=== PATIENT | female | born 1950 | race Caucasian/White ===

== ENCOUNTER 2017-09-27 09:50 | Inpatient (IN) | payer OTHER ==
[~2017-09-27] VITALS: Ht 167.6 cm; Wt 75.3 kg
[2017-09-27 09:53] VITALS: BP 203/121
[2017-09-27 10:08] LABS: ABSOLUTE BASOPHILS 0.1 thou/uL (0.0-0.2); ABSOLUTE EOSINOPHILS 0.1 thou/uL (0.0-0.7); ABSOLUTE MONOCYTES 0.7 thou/uL (0.0-1.2); ABSOLUTE NEUTROPHILS 9.9 thou/uL (1.6-8.1); BASOPHILS 0.9 %; EOSINOPHILS 0.6 %; HEMATOCRIT 43.6 % (37.0-47.0); HEMOGLOBIN 14.7 gm/dL (12.0-15.0); LYMPHOCYTES 15.8 %; MCH 31.5 pg (26.0-34.0); MCHC 33.8 g/dL (28.0-37.0); MCV 93.3 fL (80.0-100.0); MONOCYTES 5.4 %; NUCLEATED RBCS 0 /100WBC; PLATELET COUNT* 323 thou/uL (150-400); POLYS 77.3 %; RBC 4.68 mil/uL (4.20-5.00); WBC 12.8 thou/uL (4.0-11.0)
[2017-09-27 10:25] LABS: ANION GAP 11 mmol/L (7-16); BUN 13 mg/dL (7-18); CALCIUM 9.3 mg/dL (8.5-10.1); CHLORIDE 104 mmol/L (98-107); CO2 25 mmol/L (21-32); CREATININE 0.9 mg/dL (0.6-1.3); GLUCOSE 127 mg/dL (70-99); POTASSIUM 3.5 mmol/L (3.5-5.1); SODIUM 140 mmol/L (136-145)
[2017-09-27 10:31] LABS: ALKALINE PHOSPHATASE 89 U/L (46-116); SGOT 14 U/L (15-37); SGPT 14 U/L (30-65); TOTAL BILIRUBIN 0.5 mg/dL (<0.1-1.0); TOTAL PROTEIN 7.7 g/dL (6.4-8.2); TROPONIN-I LEVEL <0.06 ng/mL (<0.06)
[2017-09-27 13:15] VITALS: BP 88/69
[2017-09-27 13:59] VITALS: BP 164/81
--- NOTE | 2017-09-27 14:02 | NUR ---
Pickle Maker: Met with patient and while in the ED. Explained stroke program and what to expect during hospital course. Patient expresses that she is "scared". Repeating questions at time. Provided emotional support. Patient feels weakness in RLE, some numbness in RUE and lack of coordination, speech is understandable. Discussed controllable risk factors of smoking and managing blood pressure.
[2017-09-27 14:05] VITALS: BP 182/77
[2017-09-27 16:05] VITALS: BP 166/73
--- NOTE | 2017-09-27 16:29 | NUR ---
RECEIVED CONSULT FOR POSSIBLE REHAB ADMISSION. CONSULT HAS BEEN ACKNOWLEDGED BY TODDLER GUIDE AND DR. SOTELO. PT ADMITTED FOR POSSIBLE STROKE. STROKE WORKUP IN PROGRESS. NEUROLOGY PENDING, MRI PENDING, PT/OT/ST EVALUATIONS PENDING. WILL FOLLOW ALONG TO WORK UP AND EVALUATIONS TO DETERMINE IF PT IS IN NEED OF ACUTE REHAB. THANK YOU FOR THIS CONSULT.
--- NOTE | 2017-09-27 16:37 | EKG ---
[place] [address] ELECTROCARDIOGRAM REPORT Name: CORINNE PRAKASH Room: [address] IN .R.#: [id number] Admission: 09/27/17 Attend Phys: Phong Liao MD Discharge: Date of : 50 Report #: [id number] THIS REPORT FOR: //name// [facility] ED Test Date: 2017-09-27 Test Time: 10:03:31 Pat Name: CORINNE PRAKASH Department: Room: Gender: F Final Assembler: ID : [id number] Requested By: Fadi Cancino Order Number: [id number] MD: Tam Mckeon Measurements Intervals [place] Rate: 100 P: 51 NM: 155 QRS: -13 QRSD: 92 T: 38 QT: 384 QTc: 496 Interpretive Statements Sinus tachycardia Borderline prolonged QT interval No previous ECG available for comparison Electronically Signed On 09-27-2017 16:37:27 CDT by Tam Mckeon [email or web address] <ELECTRONICALLY SIGNED> By: Tam Mckeon MD, [facility] 09/27/17 1637 1003 1003 Tam Mckeon MD, FACC /EPI
--- NOTE | 2017-09-27 18:28 | NUR ---
PT ADMITTED TO ROOM 209 VIA CART AT 1405 FROM ED. PT ABLE TO AMBULATE WITHOUT DIFFICULTY. NIH 0. SWALLOW SCREEN -. ASSESSMENT CHARTED. AT THE BEDSIDE. VSS, BP ELEVATED. MRI/MRA HEAD, CAROTIDS DONE AND RESULTS HAVE BEEN CALLED TO NEUROLOGY. NO OTHER COMPLAINTS AT THIS TIME. WILL CONTINUE TO MONITOR.
[2017-09-27 20:15] VITALS: BP 189/101
[2017-09-28] VITALS: BP 163/63
--- NOTE | 2017-09-28 01:30 | NUR ---
TOOK PT INTO CARE AT 1930. ASSESSMENT COMPLETED CHARTED. DOING NIH Q12 HOURS WITH RANDOMIZED ONES INBETWEEN. PT WAS TIRED AT BEGINNING OF SHIFT AND HAS BEEN SLEEPING THIS SHIFT. BP STAYING HIGH AT AROUND 160S, NO S/SX OF DISTRESS. FLUIDS RUNNING AT 80ML/HR IN LEFT HAND. WILL CONTINUE TO MONITOR.
[2017-09-28 03:08] LABS: GLYCOHEMOGLOBIN (HGB A1C) 5.1 % (4.8-5.6)
[2017-09-28 04:00] VITALS: BP 158/86
[2017-09-28 05:07] LABS: ABSOLUTE BASOPHILS 0.1 thou/uL (0.0-0.2); ABSOLUTE EOSINOPHILS 0.3 thou/uL (0.0-0.7); ABSOLUTE MONOCYTES 0.5 thou/uL (0.0-1.2); ABSOLUTE NEUTROPHILS 4.2 thou/uL (1.6-8.1); BASOPHILS 1.2 %; EOSINOPHILS 4.1 %; HEMATOCRIT 40.2 % (37.0-47.0); HEMOGLOBIN 13.5 gm/dL (12.0-15.0); LYMPHOCYTES 28.1 %; MCH 31.7 pg (26.0-34.0); MCHC 33.6 g/dL (28.0-37.0); MCV 94.2 fL (80.0-100.0); MONOCYTES 7.7 %; MPV 7.4 fl. (7.2-11.1); NUCLEATED RBCS 0 /100WBC; PLATELET COUNT* 277 thou/uL (150-400); POLYS 58.9 %; RBC 4.27 mil/uL (4.20-5.00); RDW-CV 13.2 % (10.5-14.5); WBC 7.1 thou/uL (4.0-11.0)
[2017-09-28 05:13] LABS: CALCIUM 8.7 mg/dL (8.5-10.1); CHOLESTEROL 191 mg/dL (<200); CREATININE 0.8 mg/dL (0.6-1.3); HDL CHOLESTEROL 58 mg/dL (>40); LDL CHOLESTEROL 117 mg/dL (<100); TC:HDL 3.3 Ratio (Not establshd); TRIGLYCERIDE 80 mg/dL (<150); VLDL 16 mg/dL (<40)
[2017-09-28 05:24] LABS: SERUM ASSESSMENT Clear
[2017-09-28 08:00] VITALS: BP 184/79
--- NOTE | 2017-09-28 11:08 | 2DMMODE ---
[place] [address] 2 D/M-MODE ECHOCARDIOGRAM Name: CORINNE PRAKASH Room: [address] IN [facility]#: [id number] Admission: 09/27/17 Attend Phys: Phong Liao, Discharge: Date of : 50 Date of Service: 09/28/17 1108 Report #: [id number] THIS REPORT FOR: //name// APPROVED REPORT Study performed: 09/28/2017 09:21:31 EXAM: Comprehensive 2D, Doppler, and color-flow Echocardiogram Patient Location: In-Patient Room #: [facility] Status: routine BSA: 1.87 HR: 89 bpm BP: 158/86 mmHg Rhythm: NSR Other Information Study Quality: Good Indications CVA/TIA Echo Enhancing Agent Indication: Rule out Shunt Agent(s) / Amount(s) Used: Agitated Saline 10 cc 2D Dimensions LVEF(%): 63.47 (>50%) IVSd: 12.48 (7-11mm) LVOT Diam: 20.81 (18-24mm) LVDd: 40.76 mm PWd: 12.33 (7-11mm) Ascending Ao: 28.03 (22-36mm) LVDs: 26.89 (25-40mm) Aortic Root: 23.84 mm Lozano's LVEF: 63.47 % Volumes Left Atrial Volume (Systole) LA ESV Index: 23.30 mL/m2 Aortic Valve AoV Peak Abbe.: 1.44 m/s AO Peak Gr.: 8.32 mmHg LVOT Max P.13 mmHg AO Mean Gr.: 4.35 mmHg LVOT Mean P.08 mmHg LVOT Max V: 1.33 m/s AO V2 VTI: 28.06 cm LVOT Mean V: 0.79 m/[place] [address] 2 D/M-MODE ECHOCARDIOGRAM Name: CORINNE PRAKASH Room: [address] IN .R.#: [id number] Admission: 09/27/17 Attend Phys: Phong Liao, Discharge: Date of : 50 Date of Service: 09/28/17 1108 Report #: [id number] NICOLASA (VTI): 3.52 cm2 LVOT V1 VTI: 29.01 cm Mitral Valve E/A Ratio: 0.69 MV Decel. Time: 223.77 ms MV E Max Abbe.: 0.71 m/s MV PHT: 64.89 ms MVA (PHT): 3.39 cm2 TDI E/Lateral E': 7.89 E/Medial E': 7.10 Medial E' Abbe.: 0.10 m/s Lateral E' Abbe.: 0.09 m/s Pulmonary Valve PV Peak Abbe.: 1.09 m/s PV Peak Gr.: 4.73 mmHg Tricuspid Valve TR Peak Gr.: 17.88 mmHg RVSP: 22.00 mmHg Left Ventricle The left ventricle is normal size. There is normal LV segmental wall motion. There is normal left ventricular wall thickness. Left ventricular systolic function is normal. The left ventricular ejection fraction is within the normal range. LVEF is 60-65%. Grade I - abnormal relaxation pattern. Right Ventricle The right ventricle is normal size. The right ventricular systolic function is normal. Atria The left atrium size is normal. Interatrial septum is intact without evidence of ASD or PFO. The right atrium size is normal. Aortic Valve The aortic valve is normal in structure. No aortic regurgitation is present. There is no aortic valvular stenosis. Mitral Valve The mitral valve is normal in structure. There is no mitral valve regurgitation noted. No evidence of mitral valve stenosis. Tricuspid Valve The tricuspid valve is normal in structure. Trace tricuspid regurgitation. The RVSP is ___22____ [place] [address] 2 D/M-MODE ECHOCARDIOGRAM Name: CORINNE PRAKASH Room: [address] IN .R.#: [id number] Admission: 09/27/17 Attend Phys: Phong Liao, Discharge: Date of : 50 Date of Service: 09/28/17 1108 Report #: [id number] Pulmonic Valve The pulmonary valve is normal in structure. There is no pulmonic valvular regurgitation. Great Vessels The aortic root is normal in size. IVC is normal in size and collapses with >50% inspiration Pericardium There is no pericardial effusion. <Conclusion> The left ventricle is normal size. There is normal left ventricular wall thickness. Left ventricular systolic function is normal. The left ventricular ejection fraction is within the normal range. LVEF is 60-65%. Grade I - abnormal relaxation pattern. The right ventricle is normal size. The left atrium size is normal. The aortic valve is normal in structure. The mitral valve is normal in structure. The tricuspid valve is normal in structure. Trace tricuspid regurgitation. The RVSP is ___22____ mmHg. IVC is normal in size and collapses with >50% inspiration There is no pericardial effusion. There is normal LV segmental wall motion. Interatrial septum is intact without evidence of ASD or PFO. <ELECTRONICALLY SIGNED> By: Tam Mckeon MD, FACC 09/28/17 1108 1108 07 Tam Mckeon MD, FACC /INF
--- NOTE | 2017-09-28 11:11 | NUR ---
Pt is A&O. Resides at home with her . Normally active and independent, has a trip planned to go to [place] in a few weeks. No DME. No hx of HH or SNF. Admitted for stroke. Rehab consult placed. Pt's goal is to return home. No needs anticipated. Following.
[2017-09-28 11:45] VITALS: BP 186/89
--- NOTE | 2017-09-28 15:15 | NUR ---
Electrical Products Engineer: Met with patient and today for follow up. Patient able to explain cause of stroke, cholesterol management strategies, and BP management. Discussed measuring Blood Pressure at home regularly. Patient knows need to obtain follow up at for aneurysm after discharge. Walking in halls, positive attitude, looking forward to discharge. Reviewed stroke signs and symptoms and to call 911.
[2017-09-28 16:00] VITALS: BP 148/79
--- NOTE | 2017-09-28 19:08 | NUR ---
LAM RESTING IN BED. UP AD BLANCA IN ROOM. EXPECTED TO DISCHARGE OT HOME TOMORROW. MEDICATIONS FOR HTN ADJUSTED AND BEING MONOTORED. HOURKY ROUNDING COMPLETD FOR PATIENT SAFETY. VITAL SIGNS STABLE AND BLOOD PRESSURE BETTER CONTROLLED.
[2017-09-28 20:00] VITALS: BP 169/64
[2017-09-29] VITALS: BP 123/62
--- NOTE | 2017-09-29 02:53 | NUR ---
TOOK PT INTO CARE AT 1930. ASSESSMENT COMPLETED CHARTED. NIH WAS 0. NO C/O PAIN OR DISCOMFORT. UP AD BLANCA, IV IN LEFT HAND SL, SR ON THE MONITOR, A & O X 4, ABLE TO MAKE NEEDS KNOWN, VSS, NO WEAKNESS NOTED. POSSIBLE D/C TODAY. WILL CONTINUE TO MONITOR.
[2017-09-29 04:00] VITALS: BP 138/64
[2017-09-29 08:00] VITALS: BP 117/67
[2017-09-29] MEDS ORDERED: NORVASC5 MG PO (10:12)
[2017-09-29] MEDS ORDERED: ATORVASTATIN CA40 MG PO (10:13)
[2017-09-29] MEDS ORDERED: ASPIR 8181 MG PO (10:15)
[2017-09-29 10:18] VITALS: BP 117/67
[2017-09-29 11:30] VITALS: BP 160/80
--- NOTE | 2017-10-02 20:24 | CON ---
[address] [address] CONSULTATION Name: CORINNE PRAKASH Room: [address] IN M.R.#: [id number] Admission: 09/27/17 Attend Phys: Phong Liao MD Discharge: 09/29/17 Date of : 50 Report #: [id number] THIS REPORT FOR: //name// CC: Phong Liao Neena Coronel DATE OF SERVICE: 09/27/2017 HISTORY OF PRESENT ILLNESS: This is a 67-year-old female patient who indicated that about a week ago she started having some speech difficulty as well as the right leg was dragging. Symptoms were moderately severe. This came spontaneously without any trauma. They were not associated with any headache. She did not come to the hospital first, but subsequently came to the hospital because her children insisted on coming to the hospital. REVIEW OF SYSTEMS: She has not been to a physician for a long time. She has not checked her blood pressure for a long time. Therefore, it is not clear what her blood pressure is for long time, but combining the history, it looks like she is an uncontrolled hypertensive for a long period of time. She does not know what her last cholesterol was. She is complaining of right leg symptoms, but is not complaining of much other symptoms. She does not have any new eye, ENT, cardiac, respiratory, GI, , musculoskeletal, constitutional, dermatological, hematological, psychiatric, throat, allergic symptom associated with present symptomatology. PAST MEDICAL HISTORY: Negative for stroke. FAMILY HISTORY: Negative for early age CVA. SOCIAL HISTORY: Unremarkable. PHYSICAL EXAMINATION: The patient's examinations indicate she is alert, responsive, able to follow simple and complex command. Her speech, concentration, fund of knowledge and memory is at her baseline. Cranial nerve examination 2-12 was carried out and looks mostly unremarkable. She is weak in the right lower extremity, but the right upper extremity she moves rather well. Her position sense is intact. Her tone is symmetrical. There is no cerebellar sign. I could not have a very good look at the patient's fundus. She is a moderately built individual who does not have any dysmorphic features of eyes, ears and face. Her vision and hearing looks adequate. The pulses are palpable. She has no edema, cyanosis, or jaundice. Blood pressure is 177/88, respiration is , and pulse is 87. LABORATORY DATA: White count is 12.8. Sodium is normal. Her CT scan was reviewed and it showed finding consistent with a [place] [address] CONSULTATION Name: CORINNE PRAKASH Jay Room: [address] IN [facility]#: [id number] Admission: 09/27/17 Attend Phys: Phong Liao MD Discharge: 09/29/17 Date of : 50 Report #: [id number] IMPRESSION: The patient has a stroke secondary to uncontrolled hypertension. It is most likely a small vessel disease. Her MRI and MRAs ordered, we checked on that. RECOMMENDATION: I discussed with the emergency room and I told them to lower the blood pressure only slightly and it should be lowered over a period of time. She is already on aspirin. We will see if there is any need for statin and she will also is on enoxaparin and she will continue that. I discussed all of it with the patient and the patient wants to follow this plan. Thank you very much for this referral and if you have any question, please feel free to contact me. <ELECTRONICALLY SIGNED> By: Josiah Amin MD 10/02/172023 1445 04Josiah Amin MD /nt
== END 2017-09-29 13:00 | disposition home or self-care (01) | DRG 65 ==
LOC: M.ERS 09:50 → M.2W 10:51 → M.TBA-ER 10:51 → M.2W 14:24
PROVIDERS: Emergency Medicine Emergency Medical Services; ADMIT Internal Medicine
DX: I63.9 Cerebral infarction, unspecified (principal); I16.1 Hypertensive emergency; F41.9 Anxiety disorder, unspecified; I10 Essential (primary) hypertension; E78.5 Hyperlipidemia, unspecified; F17.210 Nicotine dependence, cigarettes, uncomplicated; Z71.6 Tobacco abuse counseling; Z88.2 Allergy status to sulfonamides; Z88.8 Allergy status to other drugs, medicaments and biological substances

== ENCOUNTER → 2017-12-12 | Outpatient (CLI) | payer OTHER ==
[~2017-12-12] MED LIST: ASPIR 8181 MG PO; ATORVASTATIN CA40 MG PO; NORVASC5 MG PO
== END ==
LOC: M.LAB 10:44
PROVIDERS: Psychiatry & Neurology Neuromuscular Medicine
DX: I63.8 Other cerebral infarction (principal); I67.1 Cerebral aneurysm, nonruptured; F41.9 Anxiety disorder, unspecified; I10 Essential (primary) hypertension

== ENCOUNTER 2020-02-21 17:33 | Emergency (ER) | payer OTHER ==
[~2020-02-21] VITALS: Ht 165.1 cm; Wt 81.7 kg
[2020-02-21] MEDS ORDERED: IBUPROFEN 600600 M1 PO ×2 (19:34→19:40)
[2020-02-21] MEDS ORDERED: NORCO 5-325 TA1 EAC2 PO ×2 (19:34→19:37)
[2020-02-21 20:04] VITALS: BP 149/76
== END 2020-02-21 20:05 | disposition home or self-care (01) ==
LOC: M.ERS 17:33
DX: S42.291A Other displaced fracture of upper end of right humerus, initial encounter for closed fracture (principal); I10 Essential (primary) hypertension; E78.5 Hyperlipidemia, unspecified; Z79.899 Other long term (current) drug therapy; Z88.2 Allergy status to sulfonamides; Z88.6 Allergy status to analgesic agent; W01.0XXA Fall on same level from slipping, tripping and stumbling without subsequent striking against object, initial encounter; Y93.89 Activity, other specified; Y92.89 Other specified places as the place of occurrence of the external cause; Y99.8 Other external cause status

== ENCOUNTER → 2020-02-27 | Outpatient (CLI) | payer OTHER ==
[~2020-02-27] MED LIST changes: +ASA81BEC PO; +IBUPROFEN 600600 M1 PO; +NORCO 5-325 TA1 EAC2 PO
== END ==
LOC: M.LAB 16:10
PROVIDERS: ATTEND Orthopaedic Surgery
DX: Z01.812 Encounter for preprocedural laboratory examination (principal); Z20.828 Contact with and (suspected) exposure to other viral communicable diseases

== ENCOUNTER 2020-03-02 06:07 | Observation (INO) | payer OTHER ==
[~2020-03-02] VITALS: Ht 165.1 cm; Wt 81.6 kg
--- NOTE | ~2020-03-02 | H ---
[address] [address] HISTORY AND PHYSICAL Name: CORINNE PRAKASH Room: [address] [place]#: [id number] Admission: 03/02/20 Attend Phys: Elias Hall DO Discharge: Date of : 50 Report #: [id number] THIS REPORT FOR: //name// cc: Micah Martino Russell J. DO ~ CC: Elias Matrino DATE OF SERVICE: 03/02/2020 HISTORY OF PRESENT ILLNESS: The patient is a 69-year-old female who presented to [facility] for operative treatment of her right proximal humerus fracture. She is here today with . She sustained a fall out onto her right arm, went to [facility] Emergency Department. This was on 02/21/2020. She presented to Dr. Beltre's clinic. Dr. Beltre examined her, went over treatment options ranging from nonoperative to operative, operative ranging from ORIF to arthroplasty. She ultimately wished for surgery. Dr. Beltre had discussed the case with me and I agreed with those treatment options with the patient's wish for surgery. I asked that she see me in clinic; however, she was not able to make it to the clinic and she stated she was comfortable meeting me preoperatively prior to surgery and that is what she was here for. Her pain is 10/10 at times, radiates down the arm, but mostly located at the shoulder. Denies numbness, does have some tingling about the shoulder with a little bit of radiation. She denies any fevers, chills, chest pain, shortness of breath, or calf pain. Pain is for the most part constant aching pain with frequent stabs, made better by rest and medication, worse with any type of movement. PAST MEDICAL HISTORY: Anxiety, stroke in 2018, hyperlipidemia, hypertension. PAST SURGICAL HISTORY: Tonsillectomy. FAMILY HISTORY: Reviewed and is negative for any anesthetic-related type issues. Positive for cardiovascular disease. SOCIAL HISTORY: She denies any tobacco, alcohol, or illicit drug use. MEDICATIONS: Amlodipine 5 mg, atorvastatin 40 mg, aspirin 81 mg. ALLERGIES: TYLENOL, SHE IS NOT SURE WHAT THE REACTION IS AND SULFA, RASH. REVIEW OF SYSTEMS: A 14-point completed and negative except for musculoskeletal. See HPI for the right shoulder. PHYSICAL EXAMINATION: GENERAL: She is alert and oriented x 3. [place] [address] HISTORY AND PHYSICAL Name: CORINNE PRAKASH Room: [address]#: [id number] Admission: 03/02/20 Attend Phys: Elias Hall DO Discharge: Date of : 50 Report #: [id number] HEENT: Head normocephalic. Eyes: Extraocular muscles are intact bilaterally. Ears: Normal hearing. Nose: Nares patent. LUNGS: Unlabored breathing. CARDIOVASCULAR: Well-perfused right upper extremity. ABDOMEN: Soft. PSYCHIATRIC: Appears to be in normal mood and affect. NEUROLOGIC: Difficult to get a true exam on her as she will not move much due to pain, but appears to be grossly intact distally in the right upper extremity. MUSCULOSKELETAL: The right shoulder skin is intact. Mild swelling, wrinkling in all areas of incision. Compartments soft and compressible. Imaging of the right shoulder reviewed, 3-part right proximal humerus fracture, displaced. IMPRESSION: Right 3-part proximal humerus fracture, displaced. PLAN: I had a long conversation with him in the preoperative area, lasting over 30 minutes. I went over them the imaging, exam findings, diagnosis, and different treatment options just as Dr. Beltre had. Did let them know that nonoperative management is an option. I explained to them that there is literature to back that up. She does not wish for nonoperative treatment nor does the . I explained to them that the plan today will not be for arthroplasty and will be for operative fixation using plate and screws. They are consenting for open reduction and internal fixation of the right proximal humerus. I did explain to them that she may ultimately need arthroplasty. This discussion was for at least several minutes, making sure that they understand that I will do my best to line this up, but it may not heal. Some of the more common associated complications with the surgery involves screw cutout, varus collapse, avascular necrosis, and need for revision to arthroplasty. All of those were explained in detail. Risks and complications in general discussed include but are not limited to infection that could require surgical treatment and/or long-term antibiotics with their potential sequela, wound healing complications, neurovascular injury. I explained the cephalic vein, axillary nerve, musculocutaneous nerve and others possible, bleeding with its associated complications such as hematoma, seroma, continued and/or worsening pain that can be chronic, decreased function compared to pre-injury function, explained that this could lead to loss of ability to use that arm for much functional activity, could even affect her ability to work and/or living independently or do things she enjoys, malunion, nonunion, failure of implant, bone reduction, screw cutout, varus collapse, plate impingement, tuberosity, displacement and rotator cuff dysfunction, stiffness specifically of the shoulder but the other joints in that extremity are possible as well, muscle, tendon, ligamentous injury, instability of the shoulder including dislocation, avascular necrosis, progression to arthritis that would be posttraumatic, complex regional pain syndrome, compartment syndrome, need for further intervention and/or surgery for any reason. I explained that we may have to refer to another center and/or surgeon. Did even specifically explained that if this would go on to need an arthroplasty, I would likely be referring her, organ dysfunction/failure, DVT, [place] [address] HISTORY AND PHYSICAL Name: CORINNE PRAKASH Room: [address] [place]#: [id number] Admission: 03/02/20 Attend Phys: Elias Hall DO Discharge: Date of : 50 Report #: [id number] PE, ID, stroke, , anesthetic-related complications to be discussed by the Anesthesia team prior to surgery. There are also possible unforeseen/not specifically mentioned complications. After addressing her and her 's questions stated satisfaction. They said they understood what was presented and what would be consenting for. They do still wish to proceed with surgery over the other options, acknowledged and accepted risks and complications, thanking me for my time and detailed explanations given, gave consent to proceed. By: [id number] Hall, /nt
--- NOTE | ~2020-03-02 | OP ---
[address] [address] OPERATIVE REPORT Name: CORINNE PRAKASH Jay Room: [address] [place]#: [id number] Admission: 03/02/20 Attend Phys: Maury Butts Discharge: Date of : 50 Report #: [id number] THIS REPORT FOR: //name// cc: Micah Martino Russell J. DO ~ CC: Elias Garces DATE OF SERVICE: 03/02/2020 PREOPERATIVE DIAGNOSIS: Right 3-part proximal humerus fracture. POSTOPERATIVE DIAGNOSIS: Right 3-part proximal humerus fracture. PROCEDURE: Open reduction and internal fixation of right 3-part proximal humerus fracture. SURGEON: Elias Hall DO LAPEL BASTER: Juan Sargent DO ANESTHESIA: General. ANTIBIOTICS: Ancef IV. FLUIDS: 1100 mL lactated Ringer's. BLOOD LOSS: 150 mL. COMPLICATIONS: None. SPECIMENS: None. DRAINS: None. CONDITION OF THE PATIENT: Stable to PACU. IMPLANTS: #5 FiberWire on tuberosities. Vega proximal humerus plate with the most proximal shaft screw being locking with the remaining distal being cortical, proximal screws in the middle was cancellous and the remaining are locking. INDICATIONS FOR PROCEDURE: The patient presented to [facility] for operative treatment of her displaced 3-part proximal humerus fracture. She had originally seen my partner, Dr. Beltre; he contacted me in regards to taking [facility] [address] [place] [address] OPERATIVE REPORT Name: CORINNE PRAKASH Jay Room: [address] [place]#: [id number] Admission: 03/02/20 Attend Phys: Maury Butts Discharge: Date of : 50 Report #: [id number] over her care due to complexity of the case. I went over with the patient and her in detail the plan of surgery today with risks and complications. Please see preoperative H and P I dictated for full details of discussion had. Risks and complications were acknowledged and accepted and she gave consent to proceed. DESCRIPTION OF PROCEDURE: I marked the right upper extremity in the presence of operative team members, everyone agreed this was correct. She was taken back to the operative suite, placed on the operative table. General anesthetic administered. She was then placed into a slight beach chair position, but not getting too upright so as to protect her blood pressure. She was well-padded and secured. The right upper extremity was sterilely prepped and draped in standard fashion. Timeout performed indicating correct patient, procedure, site, antibiotics and that implants were present and sterile, all team members agreed. A deltopectoral approach utilized, scalpel through skin, full thickness flaps down to the cephalic vein, identified the vein, wanted to go medially. We then retracted deltoid laterally, got in, broke up the subdeltoid adhesions to protect the axillary nerve as well as the vast majority of the deltoid attachment, worked our way distally exposing only part of bone that would be necessary for plate placement and making sure that protecting all neurovascular structures. First began by unhinging along the intertubercular groove and following up the rotator cuff interval and dissecting through this so that we could fully gain access to our tuberosity fragments. The greater tuberosity was significantly displaced. The lesser tuberosity did not appear to be a separate fragment; there was just comminution along the calcar region of the neck. We disimpacted the humeral head, got this into a good valgus position and pinned appropriately, sutured #5 FiberWire through the rotator cuff to the greater and lesser, used these to pull down and gain reduction, brought in C-arm and confirmed that reduction was appropriate but shaft will need to be lateralized. We placed our plate in appropriate position in regards to lateral to the biceps tendon and being distal to the humeral head and tuberosities so as not to impinge, pinned the plate into position, brought in C-arm, confirmed our plate position was appropriate, plate was off the bone, but again we would use this as a reduction aid to lateralize the shaft. We drilled and placed a cortical screw being long enough, so that we could get lateralization and watched this under fluoroscopy. Once we had appropriate lateralization and restructured the calcar area adjacent to the midline, we then drilled and placed a locking screw just distal to that, so as to control for that shaft position and drilled, measured and placed appropriately sized cortical screws distal to this. We then went back up into the humeral head, placed our first screw, was a cancellous type screw along the middle of the plate and then the remaining screws were drilled, measured appropriately and placed locking making sure to subtract several millimeters so as to not be too close to bone. Our kickstand screw was drilled under fluoroscopy and this was going right into the calcar region abutting very nicely, giving appropriate support along the calcar region. At this point in time, we removed any provisional fixation devices. Final C-arm images showed [address] [address] OPERATIVE REPORT Name: CORINNE PRAKASH Room: [address] [place]#: [id number] Admission: 03/02/20 Attend Phys: Maury Butts Discharge: Date of : 50 Report #: [id number] excellent reduction of fracture and placement of all hardware, saved images and dismissed C-arm. We made sure we tied down the greater tuberosity fragment quite well and passed the suture through the plate on a free needle and inserted down the remaining limbs of the suture intact through the plate appropriately giving a nice secure fixation. The suture through the lesser was tied as well. Took the shoulder through range of motion, it was full with no impingement and no displacement of fracture or escaping of the tuberosity. Irrigated thoroughly with normal saline. Closed the interval with 0 Vicryl [id number] interrupted, fat tissue closed with 0 Vicryl running, subcutaneous closed with 2-0 Monocryl buried deep, skin with a 3-0 Stratafix running, Dermabond glue over the skin. Debriefing performed confirming procedure, blood loss and that all counts were correct and final, all team members agreed. Sterile silver impregnated dressing was applied. She was placed into a sling, extubated and taken to PACU stable. POSTOPERATIVE COURSE AND EVALUATION: I spoke with her and addressed questions he had to stated satisfaction, he was very thankful for my time and efforts. She was resting in PACU with stable vital signs, pain controlled, neurovascularly intact. Compartments were soft and compressible. PACU films showed stable fixation and reduction. She will be nonweightbearing, motion encouraged about the extremity. DVT prophylaxis will be pharmacological and mechanical. She will be admitted for observation. She does wish to go home later today, we will see how she does in the postoperative state, she does not have any lethargy, she appeared to have her pain controlled, was conversing well with me in the PACU area. I have spoke with the admitting hospitalist and gone over the case with them. COVID protocol followed at all times. By: [id number] Hall DO /nt
[2020-03-02 06:51] LABS: HEMATOCRIT 37.8 % (37.0-47.0); HEMOGLOBIN 12.4 gm/dL (12.0-15.0); MCH 30.2 pg (26.0-34.0); MCHC 32.9 g/dL (28.0-37.0); MCV 91.8 fL (80.0-100.0); MPV 6.4 fl. (7.2-11.1); RBC 4.12 mil/uL (4.20-5.00); RDW-CV 13.2 % (10.5-14.5); WBC 8.2 thou/uL (4.0-11.0)
[2020-03-02 07:11] LABS: CALCIUM 8.8 mg/dL (8.5-10.1); CREATININE 0.8 mg/dL (0.6-1.3); POTASSIUM 3.5 mmol/L (3.5-5.1)
[2020-03-02 12:30] VITALS: BP 103/45
[2020-03-02 16:05] VITALS: BP 142/68
--- NOTE | 2020-03-02 17:55 | EKG ---
[place] [address] ELECTROCARDIOGRAM REPORT Name: DWAINCORINNE Room: [address]#: [id number] Admission: 03/02/20 Attend Phys: Reese Garces Discharge: Date of : 50 Date of Service: 03/02/20 0701 Report #: [id number] THIS REPORT FOR: //name// [facility] Test Date: 2020-03-02 Test Time: 07:01:48 Pat Name: CORINNE PRAKASH Department: Room: [facility] Gender: F Doughnut Dough Mixer: KATHI : 1950 Requested By: Elias Hall Order Number: [id number] Precious MD: Jose J Kim Measurements Intervals [place] Rate: 90 P: 64 MN: 165 QRS: -2 QRSD: 95 T: 33 QT: 393 QTc: 481 Interpretive Statements Sinus rhythm Ventricular premature complex Low voltage, precordial leads Baseline wander in lead(s) II,III,aVF,V2 Compared to ECG 09/27/2017 10:03:31 Ventricular premature complex(es) now present Low QRS voltage now present Sinus tachycardia no longer present Electronically Signed On 03-02-2020 17:54:58 CDT by Jose J Kim [email or web address] <ELECTRONICALLY SIGNED> By: Jose J Kim MD, FACC 03/02/20 1754 0 0 Jose J Kim MD, FACC /EPI
[2020-03-02 22:09] VITALS: BP 152/72
[2020-03-03] VITALS: BP 158/71
[2020-03-03 04:28] VITALS: BP 141/71
[2020-03-03 08:00] VITALS: BP 142/58
[2020-03-03] MEDS ORDERED: OXYCODONE HCL 55 MG PO (08:26)
[2020-03-03 11:29] VITALS: BP 142/58
[2020-03-03 11:38] VITALS: BP 142/58
[2020-03-03 12:25] VITALS: BP 142/58
== END 2020-03-03 12:45 | disposition home health service (06) ==
LOC: M.TBA 06:07 → M.ORTHSURG 06:07 → M.TBA 06:07 → M.ORTHSURG 06:26
PROVIDERS: Orthopaedic Surgery; ADMIT Internal Medicine; ATTEND Internal Medicine
DX: S42.201A Unspecified fracture of upper end of right humerus, initial encounter for closed fracture (principal); F41.9 Anxiety disorder, unspecified; E78.5 Hyperlipidemia, unspecified; I10 Essential (primary) hypertension; R09.02 Hypoxemia; Z87.891 Personal history of nicotine dependence; W18.30XA Fall on same level, unspecified, initial encounter; Z86.73 Personal history of transient ischemic attack (TIA), and cerebral infarction without residual deficits; Y93.89 Activity, other specified; Y92.89 Other specified places as the place of occurrence of the external cause; Z79.899 Other long term (current) drug therapy; Z79.82 Long term (current) use of aspirin

== ENCOUNTER → 2020-07-22 | Outpatient (CLI) | payer OTHER ==
[~2020-07-22] MED LIST changes: +OXYCODONE HCL 55 MG PO
== END ==
LOC: M.RAD 13:00
PROVIDERS: ATTEND Nurse Practitioner Family
DX: M81.0 Age-related osteoporosis without current pathological fracture (principal); Z87.81 Personal history of (healed) traumatic fracture; Z87.310 Personal history of (healed) osteoporosis fracture